=== PATIENT | male | born 1990 | race Caucasian/White ===

== ENCOUNTER 2023-10-19 08:50 | Emergency (ER) | payer OTHER, SELFPAY ==
[2023-10-19] VITALS (7 sets, daily range): BP systolic 161–176; BP diastolic 84–94; PULSE 82–95; RESP 16–18; TEMP 36.4; O2SAT 97–100; BMI 30.9
--- NOTE | 2023-10-19 09:02 | ED.VIS.CHEST ---
HPI History of Present Illness Chief Complaint: Chest Pain Informant: patient Onset/Context/Timing Onset: Days (2) Activity at onset: gradual Timing: Intermittent Location: Left Parasternal (Lower chest) Worsened By: - (Stress) Relieved By: Nothing Associated Symptoms: Positive for Diaphoresis, Fever, Lightheadedness and Palpitations; Negative for Nausea, Vomiting, Dyspnea, Cough or Acid Reflux Narrative Narrative: Patient presents with intermittent chest pain and palpitations that have been getting more frequent over the past 2 days. Patient states that he feels his heart racing at times. Patient states he feels some sharp pain in his chest at times. Patient states the pain is mainly over the lower left parasternal area. Patient states it is worse with stress. Patient states he does break into a sweat at times. Patient states he woke up with a fever today. Patient also admits to some lightheadedness. Patient states he has been having intermittent pain in both flanks as well and has been having some urinary frequency. CVD Risk Factors: Negative for Hypertension, Diabetes, Hypercholesterolemia, Family History 1' </=55 or Smoking PE Risk Factors: Negative for Recent Travel/Surgery, Recent Immobilization, Prior DVT or PE, Cancer or OCP + Smoking + >/=35 PFSH PFSH Medical History no medical history no medical history Allergy/AdvReac Type Severity Reaction Status Date / Time No Known Allergies Allergy Verified 10/19/23 08:51 Surgical History (Updated 10/19/23 @ 09:[address] [facility] DO) History of colon resection Social History Smoking Status: Never smoker ROS ROS ED Constitutional Constitutional ED: Reports fever(s) and subjective; Denies chills Eyes Eyes: Denies blurry vision or change in vision ENT ENT ED: Denies rhinorrhea or sore throat Cardiovascular Cardiovascular: Reports chest pain and palpitations Respiratory/Chest Respiratory/Chest: Denies cough or dyspnea Gastrointestinal Gastrointestinal: Reports abdominal pain; Denies nausea or vomiting Genitourinary Genitourinary ED: Reports urinary frequency; Denies dysuria or hematuria Musculoskeletal Musculoskeletal: Denies back pain or neck pain Integumentary Denies abscess or rash Neurologic Neurologic: Denies headache(s) or weakness Allergic/Immunologic Allergic/Immunologic ED: Denies mouth swelling or urticaria EXAM Physical Exam Const Vital Signs: 10/19/23 08:51 10/19/23 08:58 10/19/23 09:12 Temperature 97.6 F L Temperature Source Temporal Pulse Rate 95 Respiratory Rate 16 Respiratory Effort Normal Blood Pressure 167/94 H Blood Pressure Mean 118 Pulse Ox 100 97 Oxygen Delivery Method Room Air Room Air 10/19/23 09:51 10/19/23 10:00 10/19/23 11:00 Temperature Temperature Source Pulse Rate 90 88 82 Respiratory Rate 16 18 16 Respiratory Effort Blood Pressure 174/90 H 176/89 H 163/84 H Blood Pressure Mean 118 118 110 Pulse Ox 97 98 98 Oxygen Delivery Method Room Air Room Air Room Air 10/19/23 12:07 10/19/23 12:27 Temperature 97.6 F L Temperature Source Pulse Rate 87 87 Respiratory Rate 18 18 Respiratory Effort Blood Pressure 161/89 H 161/89 H Blood Pressure Mean 113 113 Pulse Ox 99 99 Oxygen Delivery Method Room Air Positive well nourished and well developed General Appearance ED: well developed and NAD HEENT Reports moist mucous membranes Neck supple and no JVD Chest Wall inspection of chest normal and palpation of chest normal Resp normal respiratory effort and clear to auscultation bilaterally Cardio regular rate and regular rhythm GI soft to palpation, non-tender and non-distended Extremity normal to inspection General Extremety ED: Negative for edema or tenderness General Extremity: Negative for edema Neuro oriented x3, CN's II-XII intact bilaterally and no sensory deficits noted Sensorium / Orientation: awake and alert Motor Exam: strength 5/5 throughout Psych mental status grossly normal Heart Score History: Slightly/Non-Suspicious ECG: Normal Age: </= 45 years Risk Factors: No Risk Factors Troponin: </= Normal Limit Score: 0 MDM MDM MDM Narrative Medical decision making narrative: Differential diagnosis includes cardiac dysrhythmia, cardiac ischemia, pneumonia, pneumothorax, electrolyte abnormality, urinary tract infection, musculoskeletal pain, and anxiety. EKG will be obtained to assess for cardiac dysrhythmia and cardiac ischemia. Chest x-ray will be obtained to assess for pneumonia and pneumothorax. CBC will be obtained to assess for leukocytosis and anemia. Basic metabolic profile will be obtained to assess for electrolyte abnormality and renal function. High-sensitivity troponin will be obtained to assess for cardiac ischemia. 2-hour repeat high-sensitivity troponin will be obtained to assess for ongoing cardiac ischemia. Urinalysis will be obtained to assess for urinary tract infection and hematuria. Lab Data Attestation: I reviewed the patient's lab results. Lab results narrative: CBC was reviewed and was within normal limits. Basic metabolic profile was reviewed and was within normal limits. Initial high-sensitivity troponin was reviewed and was normal at 30. Urinalysis was reviewed. There is no evidence of urinary tract infection or hematuria. 2-hour repeat high-sensitivity troponin was reviewed and was normal at 32. Labs: Laboratory Results - last 24 hr 10/19/23 10/19/23 10/19/23 09:10 09:16 11:10 WBC 6.8 RBC 5.22 Hgb 15.6 Hct 46.7 MCV 89.5 MCH 29.9 MCHC 33.4 RDW Std Deviation 39.7 RDW Coeff of Maria 12.2 Plt Count 243 MPV 9.2 Immature Gran % (Auto) 0.300 Neut % (Auto) 66.7 Lymph % (Auto) 22.4 [place] % (Auto) 8.0 Eos % (Auto) 1.6 Baso % (Auto) 1.0 Absolute Neuts (auto) 4.5 Absolute Lymphs (auto) 1.51 Nucleated RBC % 0 Sodium 139 Potassium 3.7 Chloride 108 H Carbon Dioxide 25.0 Anion Gap 6 BUN 15 Creatinine 1.21 Estim Creat Clear Calc 109.99 Est GFR (MDRD) Af Amer 88 Est GFR (MDRD) Non-Af 73 BUN/Creatinine Ratio 12.4 Glucose 115 H Calcium 9.6 Troponin I High Sens 30 32 Urine Color Yellow Urine Clarity Sl. Cloudy Urine pH 6.0 Ur Specific [place] 1.025 Urine Protein 15 H Urine Glucose (UA) Normal Urine Ketones Negative Urine Occult Blood Negative Urine Nitrite Negative Urine Bilirubin Negative Urine Urobilinogen Normal Ur Leukocyte Esterase Negative Urine RBC 0 SEEN Urine WBC 0 SEEN Ur Squamous Epith Cells 0-5 SEEN Urine Bacteria 1+ Urine Mucus 0 SEEN Radiography Chest X-Ray - ED: 1 View, Read by ED Physician, Read by Radiologist and No Acute Disease Diagnostic Testing: Clinical Impression(s) from Imaging Studies Chest X-Ray 10/19/23 09:12 IMPRESSION: The lungs are clear. Electronically Signed: Mukul Yadav MD at 9:35 EDT , Portable 1 view chest x-ray was obtained. On my independent interpretation, lung cruz are clear. There is normal cardiac silhouette. Bony thorax is normal. There is no acute process noted. Radiologist also interpreted the x-ray and agrees. EKG Initial EKG: Attestation: I personally reviewed and interpreted this EKG as follows: Interpretation: Sinus Rhythm (100) and No Acute Injury Pattern Comments: EKG was obtained. On my independent interpretation, it showed a normal sinus rhythm with a rate of 100. IL interval, QRS interval, and QTc intervals were all normal. There is left axis deviation at -42. There are no acute ST or T wave changes. Differential Diagnosis Chest pain/SOB: pulmonary embolism Reason(s) PE less likely: Positive for Well's <3, not tachycardic and not hypoxic, ACS ACS: Positive for no evidence of ACS based on cardiac biomarkers and EKG without ischemia, pneumothorax Reason(s) pneumothorax less likely: Positive for bilateral breath sounds and [employer] withhout PTX, pneumonia Reason(s) pneumonia less likely: Positive for no infiltrate on CXR and aortic dissection Reason(s) Aortic dissection less likely:: Positive for no history of HTN and normal neurological exam Treatment and Re-Evaluation :: Patient was given aspirin here. Patient was advised of his findings. Patient has a HEART score of 0. Patient was advised that this is low risk for acute cardiac event. Patient was instructed to follow-up with his primary care physician in 5 to 7 days. Patient was instructed to return if worse in any way. Patient understood and was agreeable with the plan. All questions were answered. Discharge Plan Triage Chief Complaint: Chest Pain ED Provider: [facility] Dx/Rx/DC Orders Clinical Impression: Chest pain, Elevated blood pressure reading Instructions: ED Chest Pain, Uncertain Cause, ED Hypertension, To Be Confirmed Primary Care Provider: Zully Krueger Referrals: NOT,DEFINED [Non-Staff] - Zully Krueger, ICHTHYOLOGIST-C [Primary Care Provider] - 5-7 Days Print Language: Estonian Disposition Disposition: Home, Self Care Discharge Date/Time: 10/19/23 12:28
--- NOTE | 2023-10-19 09:12 | EKG12_ITS ---
Test Reason : CHEST PAIN/PALP Blood Pressure : / mmHG Vent. Rate : 100 BPM Atrial Rate : 100 BPM P-R Int : 174 ms QRS Dur : 090 ms QT Int : 348 ms P-R-T Axes : 025 -42 016 degrees QTc Int : 448 ms Normal sinus rhythm Left axis deviation Abnormal ECG Confirmed by Fred Ramires ([id number]), online editor ABE YATES ([id number]) on 10/20/2023 8:04:39 AM Referred By: CLEMENCIA THAYER Confirmed By:Fred Ramires
--- NOTE | 2023-10-19 09:12 | RAD_ITS ---
STUDY: X-RAY CHEST REASON FOR EXAM: Male, 33 years old. Chest pain TECHNIQUE: Single AP portable view of the chest. COMPARISON: None. FINDINGS: EKG electrodes are seen. The lungs are clear and expanded. There is no demonstrated pleural abnormality. Normal size heart. Calcified bilateral hilar lymph nodes. Normal visualized pulmonary arteries. Normal visualized aortic arch and descending thoracic aorta. Normal visualized thoracic spine. Normal visualized ribs, clavicles, and shoulders. There is no demonstrated abnormality of the visualized soft tissue structures of the upper abdomen. RAD/Chest 1 View (Portable) IMPRESSION: The lungs are clear. Electronically Signed: Mukul Yadav MD at 9:35 EDT ,
[2023-10-19] MEDS: Aspirin 81 MG TAB.CHEW 324 MG PO (09:18)
[2023-10-19 09:21] LABS: Mucous, Urine 0 SEEN /hpf (<or=2+); Red Blood Cells-Urine 0 SEEN /hpf (0-5); White Blood Cells 0 SEEN /hpf (0-5)
[2023-10-19 09:21] LABS: Absolute Lymphocyte Count 1.51 X10^3/uL (0.83-4.51); Absolute Neutrophil Count 4.5 X10^3/uL (2.0-7.7); Basophil# 0.07 X10^3/uL; Eosinophil# 0.11 X10^3/uL; Eosinophils% 1.6 % (0-5); Hematocrit 46.7 % (40-54); Hemoglobin 15.6 g/dL (13.0-16.5); Lymphocyte # 1.51 X10^3/ul (0.83-4.51); Lymphocyte % 22.4 % (19-41); Mean Corp Hgb Conc 33.4 g/dL (32-36); Mean Corpuscular Hgb 29.9 pg (27.0-32.0); Mean Corpuscular Volume 89.5 fL (80-94); Mean Platelet Vol. 9.2 fl (6.2-12.0); Monocyte# 0.54 X10^3/uL; NRBC Flagged by Analyzer 0 % (0-5); Neutrophil % 66.7 % (47-70); Platelet Count 243 K/mm3 (150-450); RBC Distribution Width CV 12.2 % (11.6-14.6); RBC Distribution Width SD 39.7 fl (35.1-43.9); Red Blood Count 5.22 M/mm3 (4.6-6.2); White Blood Count 6.8 K/mm3 (4.4-11.0)
[2023-10-19 09:24] LABS: Color, Urine Yellow (Yellow); Glucose, Dipstick Normal (Normal); Ketone-Dipstick Negative (Negative); Leukocyte Esterase-Dipstick Negative /ul (Negative); Nitrite-Dipstick Negative (Negative); Occult Blood-Urine Negative /ul (Negative); Protein-Dipstick 15 mg/dl (Negative); Specific Gravity, Urine 1.025 (1.002-1.030); Urine Bilirubin Dipstick Negative (Negative); Urine Clarity Sl. Cloudy (Clear); Urine Urobilinogen Normal (Normal)
[2023-10-19 09:32] LABS: Bacteria 1+ /hpf (None Seen); Squamous Epithelial Cells - UA 0-5 SEEN /hpf (0-5)
[2023-10-19 09:42] LABS: Anion Gap 6 (5-15); BUN 15 mg/dL (7-18); BUN/Creat Ratio 12.4 RATIO (10-20); Calcium,Total 9.6 mg/dL (8.5-10.1); Chloride 108 mmol/L (98-107); Creatinine, Serum 1.21 mg/dL (0.70-1.30); EST Glomerular Filtration Rate 73 mL/min (>60); Est Glom Filt Rate - Afr Amer 88 mL/min (>60); Estimated Creatinine Clearance 109.99 ml/min; Glucose 115 mg/dL (74-106); Potassium 3.7 mmol/L (3.5-5.1); Sodium Level 139 mmol/L (136-145); Troponin-I HS (w/2H Reflex) 30 pg/mL (3.0-78.0)
[2023-10-19 11:16] LABS: Reflex Troponin-HS? (from REC) Y
[2023-10-19 11:40] LABS: Troponin-I HS 32 pg/mL (3.0-78.0)
== END 2023-10-19 12:28 | disposition home or self-care (01) ==
PROVIDERS: Emergency Provider Emergency Medicine; PCP Nurse Practitioner Family; Visit Provider Emergency Medicine
DX: R07.9 Chest pain, unspecified (principal); R00.2 Palpitations; R03.0 Elevated blood-pressure reading, without diagnosis of hypertension
CPT/HCPCS: 71045; 80048; 81001; 84484; 85025; 93005; 99284; A4216